=== PATIENT | female | born 1995 | race Two or more races ===

== ENCOUNTER 2021-10-19 18:21 | Emergency (ER) | payer SELFPAY ==
[~2021-10-19] VITALS: Ht 177.8 cm; Wt 61.0 kg
[2021-10-19 18:28] VITALS: BP 118/80
== END 2021-10-19 22:48 | disposition left against medical advice (07) ==
LOC: ER 18:21
DX: R11.0 Nausea (principal); Z53.21 Procedure and treatment not carried out due to patient leaving prior to being seen by health care provider